=== PATIENT | female | born 1945 | race Caucasian/White ===

== ENCOUNTER 2023-10-26 13:22 | Emergency (ER) | payer OTHER ==
[2023-10-26 13:41] VITALS: BP 126/73; PULSE 92; RESP 20; TEMP 98; BMI 26.4
== END 2023-10-26 14:25 | disposition home or self-care (01) ==
LOC: FER 13:22
DX: S60.341A External constriction of right thumb, initial encounter (principal); W49.04XA Ring or other jewelry causing external constriction, initial encounter
CPT/HCPCS: 99282-25